=== PATIENT | female | born 2000 | race Caucasian/White ===

== ENCOUNTER 2022-04-21 12:00 | Emergency (ER) | payer OTHER ==
[2022-04-21] MEDS ORDERED: ZOVIRAX 5% CREAM5 GM TOP (12:23)
[2022-04-21] MEDS ORDERED: VALTREX500 MG PO (12:23)
== END 2022-04-21 12:46 | disposition home or self-care (01) ==
LOC: ER1 12:00
DX: B00.1 Herpesviral vesicular dermatitis (principal)
CPT/HCPCS: 99283